=== PATIENT | male | born 1945 | race Caucasian/White ===

== ENCOUNTER 2025-04-23 14:19 | Outpatient (REF) | payer MEDICAID, SELFPAY ==
--- OUTSIDE RECORDS SUMMARY | 2025-04-23 14:45 | XMS_ITS | Encounter Summary ---
Author Organization [employer] Address [address] [place] [address] Care Team Providers Care Factory Focus Technician Name Role Phone Dora Callejas AIR DIRECTOR Primary Care Provider [phone] Encounter Details Date Type Department Care Team ([facility] st Contact Info) Description 04/23/2025 2:45 PM EDT Office Visit [facility] [address] [place], [place] [phone] Dora Callejas NP [address] [place] [address] Pain of right hip (Primary Dx); Prediabetes Social History Tobacco Use Types Packs/Day Years Used Date Smoking Tobacco: Former Cigarettes Smokeless Tobacco: Never Tobacco Cessation:Counseling Given: Not Answered Alcohol Use Standard Drinks/Week Comments Not Currently 0 (1 standard drink = 0.6 oz pur e alcohol) Depression Answer Date Recorded Patient Health Questionnaire-9 Score 1 04/23/2025 Patient Health Questionnaire-9 Score 1 04/23/2025 Last PHQ-9: Questionnaire Data Not on file 0 04/23/2025 Housing Stability Answer Date Recorded What is your housing situation today? I do not have housing (Staying with others, in a hotel, in a prison, living outside on the street, on a beach, in a car, or in a park 03/05/[address] you li ve. Do you have problems with any of the following? None of the above 03/05/2025 Food Insecurity Answer Date Recorded Within the past 12 months, y ou worried that your food would run out before you got money to buy more: Sometimes True 2024 Within the past 12 months,th e food you bought just didn't last and you didn't have enough money to get more: Sometimes True 03/05/2025 Transportation Answer Date Recorded In the past 12 months, has l ack of transportation kept you from medical appts, meetings, work or from getting things needed for daily living? I am not sure 03/05/2025 Utilities Answer Date Recorded In the past 12 months, has t he electric, gas, oil or water company threatened to shut off services in your home? I am not sure 03/05/2025 Depression Answer Date Recorded Patient Health Questionnaire-2 Score 0 04/23/2025 Internet Access Answer Date Recorded Internet Access Q1 I am not sure 03/05/2025 Internet Access Q2 Not on file 03/05/2025 Sex and Gender Information Value Date Recorded Sex Assigned at Male 03/05/2025 1:42 PM EDT Legal Sex Male 11:11 AM EDT Gender Identity Male 03/05/2025 1:42 PM EDT Sexual Orientation Straight 03/05/2025 1: 42 PM EDT documented as of this encounter Last Filed Vital Signs Vital Sign Reading Time Taken Comments Blood Pressure 174/84 04/23/2025 2:48 PM EDT Pulse 74 04/23/2025 2:48 PM EDT Temperature 36.3 C (97.4 F) 04/23/2025 2:48 PM EDT Respiratory Rate 12 04/23/2025 2:48 PM EDT Oxygen Saturation 96% 04/23/2025 2:48 PM EDT Inhaled Oxygen Concentration - - Weight 84.3 kg (185 lb 12.8 oz) 04/23/2025 2:48 PM EDT Height 172.7 cm (5' 8 ) 04/23/2025 2:48 PM EDT Body Mass Index 28.25 04/23/2025 2:48 PM EDT documented in this encounter Functional Status * Over the past 2 weeks, how often have you been bothered by any of the following problems? Question Answer Date of Assessment Author Patient Health Questionnaire -2 Score 0 04/23/2025 2:51 PM EDT Flori Colon MA * Little interest or pleasure in doing things Answer Date of Assessment Author Not at all 04/23/2025 2:51 PM EDT Juan Colon MA * Feeling down, depressed, or hopeless Answer Date of Assessment Author Not at all 04/23/2025 2:51 PM Juan Castillo MA * Trouble falling or staying asleep, or sleeping too much Answer Date of Assessment Author Not at all 04/23/2025 2:51 PM Juan Castillo MA * Feeling tired or having little energy Answer Date of Assessment Author Not at all 04/23/2025 2:51 PM Juan Castillo MA * Poor appetite or overeating Answer Date of Assessment Author Not at all 04/23/2025 2:51 PM Juan Castillo MA * Feeling bad about yourself - or that you are a failure or have let yourself or your family down Answer Date of Assessment Author Not at all 04/23/2025 2:51 PM Juan Castillo MA * Trouble concentrating on things, such as reading the newspaper or watching television Answer Date of Assessment Author Several days 04/23/2025 2:51 PM Juan Castillo MA * Moving or speaking so slowly that other people could have noticed? Or the opposite - being so fidgety or restless that you have been moving around a lot more than usual. Answer Date of Assessment Author Not at all 04/23/2025 2:51 PM Juan Castillo MA * Thoughts that you would be better off or hurting yourself in some way Answer Date of Assessment Author Not at all 04/23/2025 2:51 PM Juan Castillo MA * Patient Health Questionnaire-9 Score Answer Date of Assessment Author 1 04/23/2025 2:51 PM Juan Castillo MA * How difficult have these problems made it for you to do your work, take care of things at home, or get along with other people? Answer Date of Assessment Author Not difficult at all 04/23/2025 2:51 PM Juan Trinidad MA * Over the last 2 weeks, how often have you been bothered by any of the following problems? Question Answer Date of Assessment Author Feeling nervous, anxious, or on edge 0 04/23/2025 2:52 PM EDT Flori Colon MA Not being able to stop or control worrying 0 04/23/2025 2:52 PM EDT Flori Colon MA Worrying too much about different things 0 04/23/2025 2:52 PM EDT Flori Colon MA Trouble relaxing 0 04/23/2025 2:52 PM EDT Juan Dobbs MA Being so restless that it is hard to sit still 0 04/23/2025 2:52 PM EDT Flori Colon MA Becoming easily annoyed or irritable 0 04/23/2025 2:52 PM EDT Flori Colon MA Feeling afraid as if somethi ng awful might happen 0 04/23/2025 2:52 PM EDT Flori Colon MA MARTHA-7 Total Score 0 04/23/2025 2:52 PM EDT Juan Colon MA documented as of this encounter Plan of Treatment Not on file documented as of this encounter Procedures Procedure Name Priority Date/Time Associated Diagnosis Comments POCT GLYCATED HEMOGLOBIN, TOTAL Routine 04/23/2025 2:51 PM EDT Prediabetes POCT GLUCOSE Routine 04/23/2025 2:50 PM EDT Prediabetes documented in this encounter Results * (ABNORMAL) POCT HGB A1C (04/23/2025 2:51 PM EDT) Pathologist [facility] Hemoglobin A1C 6.0(A) 4.0 - 5.7 % QC Media Lot # [id number] Lot# Expiration Date Blood 04/23/2025 2:51 PM EDT us Dora Callejas NP POINT OF CARE TEST ENTER/EDIT OR DERABLES Final Result * POCT Glucose (04/23/2025 2:50 PM EDT) Glucose Blood, POC 126 60 - 200 mg/dL QC Media Lot # [id number] Lot# Expiration Date Blood Capillary blood specimen / Unknown 04/23/2025 2:50 PM EDT Dora Callejas AIR DIRECTOR POINT OF CARE TEST ENTER/EDIT OR DERABLES Final Result documented in this encounter Visit Diagnoses Diagnosis Pain of right hip- Primary Prediabetes Other abnormal glucose documented in this encounter Additional Health Concerns Assessment Noted Time PHQ-9 Depression Total Score: 1 04/23/20 2:51 PM EDT documented as of this encounter Care Teams Factory Focus Technician Relationship Specialty Start Date End Date Dora Callejas NP [address] [place] [id number] PCP - General Family Medicine 03/05/25 documented as of this encounter
--- OUTSIDE RECORDS SUMMARY | 2025-04-23 15:03 | XMS_ITS | Encounter Summary ---
Author Organization [facility] Address [address] [place] [address] Care Team Providers Care Patent Legal Assistant Name Role Phone Ledy Nova Primary Care Provider Encounter Details Date Type Department Care Team (Latest Contact Info) Description 12/12/2024 Lab Requisition [facility] - Main Lab [address] [facility] [place] [address] Ness Hess MD [address] [place] [id number] Type 2 diabetes mellitus without complications (CMS/[facility] V24, CMS/[facility] V28) Social History Tobacco Use Types Packs/Day Years Used Date Smoking Tobacco: Never Alcohol Use Standard Drinks/Week Comments Not Currently 0 (1 standard drink = 0.6 oz pur e alcohol) Interpersonal Safety Answer Date Record ed Physical Abuse 11/15/2024 Verbal Abuse 11/15/2024 Sex and Gender Information Value Date Recorded Sex Assigned at Not on file Legal Sex Male 9:33 AM EST Gender Identity Not on file Sexual Orientation Not on file documented as of this encounter Functional Status * Are you deaf or do you have serious difficulty hearing? Answer Date of Assessment Author No 11/14/2024 10:17 AM Christian Whittaker RN * Are you blind or do you have serious difficulty seeing, even when wearing glasses? Answer Date of Assessment Author No 11/14/2024 10:17 AM Christian Whittaker RN * Do you have serious difficulty walking or climbing stairs? Answer Date of Assessment Author No 11/14/2024 10:17 AM Christian Whittaker RN * Do you have serious difficulty dressing or bathing? Answer Date of Assessment Author No 11/14/2024 10:17 AM Christian Whittaker RN * Because of a physical, mental, or emotional condition, do you have serious difficulty doing errandsalone such as visiting the doctor? Answer Date of Assessment Author No 11/14/2024 10:17 AM Christian Whittaker RN documented as of this encounter Mental Status * Because of a physical, mental, or emotional condition, do you have serious difficulty concentrating, remembering, or making decisions? (5 years old or older) Answer Entry Date Author No 11/14/2024 10:17 AM Christian Whittaker RN documented in this encounter Plan of Treatment Not on file documented as of this encounter Procedures Procedure Name Priority Date/Time Associated Diagnosis Comments BASIC METABOLIC PANEL Routine 12/12/2024 7:22 AM EDT Type 2 diabetes mellitus without complications documented in this encounter Results * (ABNORMAL) Basic metabolic panel (12/12/2024 7:22 AM EDT) Sodium 140 133 - 145 mmol/L LAB CHEMISTRY METHOD 12/12/2024 11:55 AM [facility] Potassium 5.3 3.5 - 5.5 mmol/L LAB CHEMISTRY METHOD 12/12/2024 11:55 AM [facility] Comment:Hemolysis present Chloride 107 96 - 110 mmol/L LAB CHEMISTRY METHOD 12/12/2024 11:55 AM [facility] CO2 23 21 - 32 mmol/L LAB CHEMISTRY METHOD 12/12/2024 11:55 AM [facility] Anion Gap 10 3 - 11 LAB CHEMISTRY METHOD 12/12/2024 11:55 AM [facility] Glucose 116(H) 70 - 100 mg/dL LAB CHEMISTRY METHOD 12/12/2024 11:55 AM [facility] BUN 28(H) 5 - 25 mg/dL LAB CHEMISTRY METHOD 12/12/2024 11:55 AM EDT [facility] Creatinine 1.15 0.70 - 1.30 mg/dL LAB CHEMISTRY METHOD 12/12/2024 11:55 AM EDT [facility] eGFR 65 >=60 mL/min/1. 73m2 LAB CHEMISTRY METHOD 12/12/2024 11:55 AM EDT [facility] Comment:Calculation based on the Chronic Kidney Disease Epidemiology Collaboration (CKD-EPI) equation refit without adjustment for race. BUN/Creatinine Ratio 24.3 LAB CHEMISTRY METHOD 12/12/2024 11:55 AM EDT [facility] Calcium 9.8 8.5 - 10.5 mg/dL LAB CHEMISTRY METHOD 12/12/2024 11:55 AM EDT [facility] Blood Venous blood specimen / Unknown Venipuncture / Unknown 12/12/2024 7:22 AM EDT 12/12/2024 10:02 AM EDT us Ness Hess MD LAB BLOOD ORDERABLES Final Resu lt [facility] [address] [place] [address], documented in this encounter Visit Diagnoses Diagnosis Type 2 diabetes mellitus without complications (CMS/HCC V24, CMS/HCC V28) documented in this encounter Care Teams Patent Legal Assistant Relationship Specialty Start Date End Date Ledy Nova PA [address] [place] [address] PCP - General 11/14/24 documented as of this encounter
[2025-04-26 22:04] LABS: TS Negative Control Passed; TS Panel A 0; TS Panel B 3; TS Positive Control Passed; TSpotTB Negative (Negative)
== END 2025-04-23 14:20 | disposition home or self-care (01) ==
LOC: HO.HHCL 14:19
PROVIDERS: PCP Nurse Practitioner Family; Visit Provider Nurse Practitioner Family
DX: Z11.1 Encounter for screening for respiratory tuberculosis (principal)
CPT/HCPCS: 36415; 86481